=== PATIENT | male | born 1990 | race Caucasian/White ===

== ENCOUNTER 2020-07-03 14:40 | Inpatient (IN) | payer OTHER ==
[2020-07-03 16:43] VITALS: BMI 24.9
[2020-07-03] MEDS ORDERED: NICOTINE POLACRILEX 2 MG GUM BC PRN (17:51)
[2020-07-03] MEDS ORDERED: MAGNESIUM HYDROX 2400MG/30ML ORAL SUSPENSION 30 ML CUP PO PRN (17:51)
[2020-07-03] MEDS ORDERED: P-EPHED 60MG/TRIPROLIDI 2.5MG TABLET PO PRN (17:51)
[2020-07-03] MEDS ORDERED: MAGNESIUM CITRATE 300 ML BOTTLE PO PRN (17:51)
[2020-07-03] MEDS ORDERED: guaiFENesin 200 MG/10 ML 10 ML UNIT-DOSE CUPS PO PRN (17:51)
[2020-07-03] MEDS ORDERED: IBUPROFEN 400 MG TABLET (FP) PO PRN (17:51)
[2020-07-03] MEDS ORDERED: ACETAMINOPHEN 325 MG TABLET (FP) PO PRN (17:51)
[2020-07-03] MEDS ORDERED: LOPERAMIDE HCL 2 MG CAPSULE PO PRN (17:51)
[2020-07-03] MEDS ORDERED: MAG HYDROX/AL HYDROX/SIMETH 30 ML UNIT-DOSE CUP PO PRN (17:51)
[2020-07-03] MEDS: NICOTINE 21 MG/24 HOURS TOPICAL PATCH TD SCH (19:00)
[2020-07-03] MEDS: hydrOXYzine PAMOATE 25 MG CAPSULE (FP) PO SCH ×2 (19:00→21:35)
[2020-07-03] MEDS ORDERED: TUBERCULIN PPD 5 TU/0.1ML VIAL ID ONE (19:29)
[2020-07-03] MEDS: PRENATAL VITAMINS W/ FOLIC ACID TABLET (FP) PO SCH (19:33)
[2020-07-03] MEDS: THIAMINE HCL 100 MG TABLET (FP) PO SCH (21:35)
[2020-07-03] MEDS: MELATONIN 5 MG TABLETS PO SCH (21:35)
[2020-07-03 23:30] LABS: PH,URINE 5.5 (5.0-8.0); URINE APPEARANCE CLEAR; URINE BILIRUBIN NEGATIVE (NEGATIVE); URINE COLOR YELLOW; URINE GLUCOSE (UA) NEGATIVE (NEGATIVE); URINE KETONE NEGATIVE (NEGATIVE); URINE LEUK ESTERASE NEGATIVE (NEGATIVE); URINE NITRITE NEGATIVE (NEGATIVE); URINE PROTEIN NEGATIVE (NEGATIVE)
[2020-07-04] MEDS ORDERED: hydrOXYzine PAMOATE 25 MG CAPSULE (FP) PO ONE (00:20)
[2020-07-04] MEDS ORDERED: MELATONIN 5 MG TABLETS PO ONE (00:20)
[2020-07-04] MEDS: hydrOXYzine PAMOATE 25 MG CAPSULE (FP) PO SCH (05:58)
[2020-07-04] MEDS ORDERED: METHADONE HCL 40 MG DISPERSABLE TABLET ONE (06:59)
[2020-07-04] MEDS ORDERED: METHADONE HCL 10 MG TABLET ONE (06:59)
[2020-07-04] MEDS ORDERED: METHADONE HCL 10 MG TABLET PO SCH (07:00)
[2020-07-04] MEDS: METHADONE 80 MG, METHADONE 10 MG PO SCH (07:02)
[2020-07-04] MEDS: NICOTINE 21 MG/24 HOURS TOPICAL PATCH TD SCH (09:46)
[2020-07-04] MEDS: PRENATAL VITAMINS W/ FOLIC ACID TABLET (FP) PO SCH (09:46)
[2020-07-04 10:17] LABS: POTASSIUM 4.3 mmol/L (3.5-5.1)
[2020-07-04 10:21] LABS: HEMATOCRIT 36.8 % (35.4-49); HEMOGLOBIN 12.1 GM/dL (11.7-16.9); MCH 31.1 pg (25.7-33.7); MEAN CELL VOLUME 94.3 fl (80-96); MEAN PLT VOLUME 7.9 fl (7.5-11.1); PLATELET COUNT 325 K/MM3 (134-434); RDW 13.8 % (11.9-15.9); WHITE BLOOD COUNT 9.5 K/mm3 (4.0-10.0)
[2020-07-04 11:10] LABS: HIV INTERPRETATION NEGATIVE (NEGATIVE)
[2020-07-04 11:34] LABS: CALCIUM 9.7 mg/dL (8.5-10.1)
[2020-07-04 11:35] LABS: ALBUMIN 3.8 g/dl (3.4-5.0); BLOOD UREA NITROGEN 10.2 mg/dL (7-18); CREATININE 0.9 mg/dL (0.55-1.3)
[2020-07-04 11:40] LABS: BILIRUBIN,TOTAL 0.7 mg/dL (0.2-1); TOT PROT 7.7 g/dl (6.4-8.2)
[2020-07-04] MEDS ORDERED: IBUPROFEN 600 MG TABLET (FP) PO PRN (12:50)
[2020-07-04] MEDS: LIDOCAINE 5% TOPICAL PATCH TP SCH (13:39)
[2020-07-04] MEDS: GABAPENTIN 400 MG CAPSULE PO SCH ×2 (13:49→21:31)
[2020-07-04] MEDS: THIAMINE HCL 100 MG TABLET (FP) PO SCH (21:31)
[2020-07-04] MEDS: MELATONIN 5 MG TABLETS PO SCH (21:31)
[2020-07-04] MEDS: LIDOCAINE PATCH REMOVAL MC SCH (21:32)
[2020-07-04] MEDS: traZODone HCL 50 MG TABLET (FP) PO SCH (21:33)
[2020-07-05] MEDS ORDERED: METHADONE HCL 40 MG DISPERSABLE TABLET ONE (03:09)
[2020-07-05] MEDS ORDERED: METHADONE HCL 10 MG TABLET ONE (03:09)
[2020-07-05] MEDS: METHADONE 80 MG, METHADONE 10 MG PO SCH (06:35)
[2020-07-05] MEDS: GABAPENTIN 400 MG CAPSULE PO SCH ×3 (06:35→21:06)
[2020-07-05] MEDS: PRENATAL VITAMINS W/ FOLIC ACID TABLET (FP) PO SCH (09:46)
[2020-07-05] MEDS: LIDOCAINE 5% TOPICAL PATCH TP SCH (09:46)
[2020-07-05] MEDS: ESCITALOPRAM OXALATE 20 MG TABLET PO SCH (09:46)
[2020-07-05] MEDS: NICOTINE 21 MG/24 HOURS TOPICAL PATCH TD SCH (09:47)
[2020-07-05] MEDS ORDERED: ACETAMINOPHEN 325 MG TABLET (FP) PO PRN (09:53)
[2020-07-05] MEDS: traZODone HCL 50 MG TABLET (FP) PO SCH (21:06)
[2020-07-05] MEDS: MELATONIN 5 MG TABLETS PO SCH (21:06)
[2020-07-05] MEDS: THIAMINE HCL 100 MG TABLET (FP) PO SCH (21:06)
[2020-07-05] MEDS: LIDOCAINE PATCH REMOVAL MC SCH (21:07)
[2020-07-06] MEDS ORDERED: METHADONE HCL 40 MG DISPERSABLE TABLET ONE (05:36)
[2020-07-06] MEDS ORDERED: METHADONE HCL 10 MG TABLET ONE (05:36)
[2020-07-06] MEDS: METHADONE 80 MG, METHADONE 10 MG PO SCH (06:17)
[2020-07-06] MEDS: GABAPENTIN 400 MG CAPSULE PO SCH ×3 (06:17→21:40)
[2020-07-06] MEDS: LIDOCAINE 5% TOPICAL PATCH TP SCH (10:13)
[2020-07-06] MEDS: NICOTINE 21 MG/24 HOURS TOPICAL PATCH TD SCH (10:13)
[2020-07-06] MEDS: ESCITALOPRAM OXALATE 20 MG TABLET PO SCH (10:13)
[2020-07-06] MEDS: PRENATAL VITAMINS W/ FOLIC ACID TABLET (FP) PO SCH (10:13)
[2020-07-06] MEDS: THIAMINE HCL 100 MG TABLET (FP) PO SCH (21:40)
[2020-07-06] MEDS: traZODone HCL 50 MG TABLET (FP) PO SCH (21:40)
[2020-07-06] MEDS: LIDOCAINE PATCH REMOVAL MC SCH (21:40)
[2020-07-06] MEDS: MELATONIN 5 MG TABLETS PO SCH (21:40)
[2020-07-07] MEDS ORDERED: METHADONE HCL 40 MG DISPERSABLE TABLET ONE (05:03)
[2020-07-07] MEDS ORDERED: METHADONE HCL 10 MG TABLET ONE (05:03)
[2020-07-07] MEDS: METHADONE 80 MG, METHADONE 10 MG PO SCH (06:14)
[2020-07-07] MEDS: GABAPENTIN 400 MG CAPSULE PO SCH ×3 (06:15→21:16)
[2020-07-07] MEDS: ESCITALOPRAM OXALATE 20 MG TABLET PO SCH (10:39)
[2020-07-07] MEDS: PRENATAL VITAMINS W/ FOLIC ACID TABLET (FP) PO SCH (10:39)
[2020-07-07] MEDS: LIDOCAINE 5% TOPICAL PATCH TP SCH (10:40)
[2020-07-07] MEDS: NICOTINE 21 MG/24 HOURS TOPICAL PATCH TD SCH (10:40)
[2020-07-07] MEDS: MELATONIN 5 MG TABLETS PO SCH (21:15)
[2020-07-07] MEDS: traZODone HCL 50 MG TABLET (FP) PO SCH (21:15)
[2020-07-07] MEDS: THIAMINE HCL 100 MG TABLET (FP) PO SCH (21:15)
[2020-07-07] MEDS: LIDOCAINE PATCH REMOVAL MC SCH (21:16)
[2020-07-08] MEDS: IBUPROFEN 600 MG TABLET (FP) PO PRN (02:51)
[2020-07-08] MEDS ORDERED: METHADONE HCL 40 MG DISPERSABLE TABLET ONE (05:34)
[2020-07-08] MEDS ORDERED: METHADONE HCL 10 MG TABLET ONE (05:34)
[2020-07-08] MEDS: METHADONE 80 MG, METHADONE 10 MG PO SCH (06:36)
[2020-07-08] MEDS: GABAPENTIN 400 MG CAPSULE PO SCH ×3 (06:36→22:16)
[2020-07-08] MEDS: PRENATAL VITAMINS W/ FOLIC ACID TABLET (FP) PO SCH (09:40)
[2020-07-08] MEDS: ESCITALOPRAM OXALATE 20 MG TABLET PO SCH (09:40)
[2020-07-08] MEDS: NICOTINE 21 MG/24 HOURS TOPICAL PATCH TD SCH (09:40)
[2020-07-08] MEDS: LIDOCAINE 5% TOPICAL PATCH TP SCH (09:40)
[2020-07-08] MEDS: traZODone HCL 50 MG TABLET (FP) PO SCH (22:17)
[2020-07-08] MEDS: MELATONIN 5 MG TABLETS PO SCH (22:18)
[2020-07-08] MEDS: THIAMINE HCL 100 MG TABLET (FP) PO SCH (22:18)
[2020-07-08] MEDS: LIDOCAINE PATCH REMOVAL MC SCH (22:18)
[2020-07-09] MEDS ORDERED: METHADONE HCL 10 MG TABLET ONE (05:05)
[2020-07-09] MEDS ORDERED: METHADONE HCL 40 MG DISPERSABLE TABLET ONE (05:05)
[2020-07-09] MEDS: IBUPROFEN 600 MG TABLET (FP) PO PRN (05:14)
[2020-07-09] MEDS: METHADONE 80 MG, METHADONE 10 MG PO SCH (06:34)
[2020-07-09] MEDS: GABAPENTIN 400 MG CAPSULE PO SCH ×3 (06:34→21:06)
[2020-07-09] MEDS: ESCITALOPRAM OXALATE 20 MG TABLET PO SCH (09:57)
[2020-07-09] MEDS: NICOTINE 21 MG/24 HOURS TOPICAL PATCH TD SCH (09:57)
[2020-07-09] MEDS: PRENATAL VITAMINS W/ FOLIC ACID TABLET (FP) PO SCH (09:57)
[2020-07-09] MEDS: LIDOCAINE 5% TOPICAL PATCH TP SCH (09:57)
[2020-07-09] MEDS: THIAMINE HCL 100 MG TABLET (FP) PO SCH (21:06)
[2020-07-09] MEDS: traZODone HCL 50 MG TABLET (FP) PO SCH (21:06)
[2020-07-09] MEDS: MELATONIN 5 MG TABLETS PO SCH (21:06)
[2020-07-09] MEDS: LIDOCAINE PATCH REMOVAL MC SCH (21:07)
[2020-07-10] MEDS: IBUPROFEN 600 MG TABLET (FP) PO PRN ×2 (00:48→16:39)
[2020-07-10] MEDS ORDERED: METHADONE HCL 40 MG DISPERSABLE TABLET ONE (04:15)
[2020-07-10] MEDS ORDERED: METHADONE HCL 10 MG TABLET ONE (04:16)
[2020-07-10] MEDS: METHADONE 80 MG, METHADONE 10 MG PO SCH (06:43)
[2020-07-10] MEDS: GABAPENTIN 400 MG CAPSULE PO SCH (06:44)
[2020-07-10] MEDS: PRENATAL VITAMINS W/ FOLIC ACID TABLET (FP) PO SCH (10:13)
[2020-07-10] MEDS: ESCITALOPRAM OXALATE 20 MG TABLET PO SCH (10:13)
[2020-07-10] MEDS: LIDOCAINE 5% TOPICAL PATCH TP SCH (10:13)
[2020-07-10] MEDS: NICOTINE 21 MG/24 HOURS TOPICAL PATCH TD SCH (10:14)
[2020-07-10] MEDS: GABAPENTIN 300 MG CAPSULE PO SCH ×2 (14:06→21:33)
[2020-07-10] MEDS: THIAMINE HCL 100 MG TABLET (FP) PO SCH (21:33)
[2020-07-10] MEDS: MELATONIN 5 MG TABLETS PO SCH (21:33)
[2020-07-10] MEDS: traZODone HCL 50 MG TABLET (FP) PO SCH (21:34)
[2020-07-10] MEDS: LIDOCAINE PATCH REMOVAL MC SCH (21:35)
[2020-07-11] MEDS: IBUPROFEN 600 MG TABLET (FP) PO PRN (00:03)
[2020-07-11] MEDS ORDERED: METHADONE HCL 40 MG DISPERSABLE TABLET ONE (05:03)
[2020-07-11] MEDS ORDERED: METHADONE HCL 10 MG TABLET ONE (05:04)
[2020-07-11] MEDS: GABAPENTIN 300 MG CAPSULE PO SCH ×3 (06:29→21:04)
[2020-07-11] MEDS: METHADONE 80 MG, METHADONE 10 MG PO SCH (06:29)
[2020-07-11] MEDS: NICOTINE 21 MG/24 HOURS TOPICAL PATCH TD SCH (09:53)
[2020-07-11] MEDS: LIDOCAINE 5% TOPICAL PATCH TP SCH (09:53)
[2020-07-11] MEDS: PRENATAL VITAMINS W/ FOLIC ACID TABLET (FP) PO SCH (09:53)
[2020-07-11] MEDS: ESCITALOPRAM OXALATE 20 MG TABLET PO SCH (09:53)
[2020-07-11] MEDS: traZODone HCL 50 MG TABLET (FP) PO SCH (21:00)
[2020-07-11] MEDS: THIAMINE HCL 100 MG TABLET (FP) PO SCH (21:01)
[2020-07-11] MEDS: MELATONIN 5 MG TABLETS PO SCH (21:01)
[2020-07-11] MEDS ORDERED: MASKS NR ONE (21:01)
[2020-07-11] MEDS: LIDOCAINE PATCH REMOVAL MC SCH (21:44)
[2020-07-12] MEDS ORDERED: METHADONE HCL 40 MG DISPERSABLE TABLET ONE (04:48)
[2020-07-12] MEDS ORDERED: METHADONE HCL 10 MG TABLET ONE (04:48)
[2020-07-12] MEDS: IBUPROFEN 600 MG TABLET (FP) PO PRN (05:07)
[2020-07-12] MEDS: METHADONE 80 MG, METHADONE 10 MG PO SCH (05:49)
[2020-07-12] MEDS: GABAPENTIN 300 MG CAPSULE PO SCH (05:49)
[2020-07-12 06:52] VITALS: BP 141/56; PULSE 91; TEMP 97.7
[2020-07-12] MEDS: PRENATAL VITAMINS W/ FOLIC ACID TABLET (FP) PO SCH (10:02)
[2020-07-12] MEDS: NICOTINE 21 MG/24 HOURS TOPICAL PATCH TD SCH (10:02)
[2020-07-12] MEDS: ESCITALOPRAM OXALATE 20 MG TABLET PO SCH (10:02)
[2020-07-12] MEDS: LIDOCAINE 5% TOPICAL PATCH TP SCH (10:03)
== END 2020-07-12 10:23 | disposition home or self-care (01) | DRG 772 ==
LOC: YASAS 14:40 → Y3W 17:54
PROVIDERS: ADMIT Allergy & Immunology; ATTEND Allergy & Immunology
PROC: HZ42ZZZ Group Counseling for Substance Abuse Treatment, Cognitive-Behavioral (ICD-10-PCS; principal; 2020-07-06)
DX: F10.20 Alcohol dependence, uncomplicated (principal); F10.280 Alcohol dependence with alcohol-induced anxiety disorder; F11.20 Opioid dependence, uncomplicated; F12.10 Cannabis abuse, uncomplicated; F17.210 Nicotine dependence, cigarettes, uncomplicated; F91.8 Other conduct disorders; F33.1 Major depressive disorder, recurrent, moderate; F19.282 Other psychoactive substance dependence with psychoactive substance-induced sleep disorder; Z62.810 Personal history of physical and sexual abuse in childhood; Z56.0 Unemployment, unspecified
CPT/HCPCS: 36415; 71045-TC-FY; 80053; 81003; 85027; 86780; 87389; 93005; 93010; C9803; U0003